=== PATIENT | female | born 1975 | race Caucasian/White ===

== ENCOUNTER → 2018-05-29 | Outpatient (REF) | payer OTHER ==
[2018-05-29 22:05] LABS: CHLAMYDIA DNA AMPLIFICATION NEGATIVE (NEGATIVE); GC DNA AMPLIFICATION NEGATIVE (NEGATIVE)
[2018-05-31 14:10] LABS: HPV HYBRID CAPTURE II Negative (Negative)
== END ==
LOC: M SFHCWAGY 15:38
DX: Z12.4 Encounter for screening for malignant neoplasm of cervix (principal); Z11.3 Encounter for screening for infections with a predominantly sexual mode of transmission; A59.09 Other urogenital trichomoniasis
CPT/HCPCS: 87591

== ENCOUNTER 2022-09-17 15:53 | Emergency (ER) | payer OTHER ==
[~2022-09-17] VITALS: Ht 172.7 cm; Wt 90.8 kg
[2022-09-17] MEDS ORDERED: ROBILIQ13 PO (16:23)
[2022-09-17] MEDS ORDERED: ACETAMINOPHEN 325 MG TAB PO ONE (18:10)
[2022-09-17 18:50] LABS: BASO # 0.1 10^3/uL (0.0-0.2); BASO % 0.4 % (0.0-1.0); HEMATOCRIT 43.7 % (36.0-47.0); HEMOGLOBIN 14.8 g/dl (12.0-15.5); LYMPH % 9.8 % (24.0-44.0); MEAN CORPUSCULAR HEMOGLOBIN 32.7 pg (27.0-33.0); MEAN CORPUSCULAR HGB CONC 33.9 g/dl (32.0-36.5); MEAN CORPUSCULAR VOLUME 96.7 fl (80.0-96.0); MONO # 1.2 10^3/uL (0.0-0.8); NEUTROPHILS # 16.8 10^3/uL (1.5-8.5); PLATELET COUNT, AUTOMATED 346 10^3/uL (150-450); RED BLOOD COUNT 4.52 10^6/uL (4.00-5.40); WHITE BLOOD COUNT 20.2 10^3/uL (4.0-10.0)
[2022-09-17 19:00] LABS: INR 1.1; PROTHROMBIN TIME 14.5 SECONDS (12.5-14.5)
[2022-09-17 19:01] LABS: PARTIAL THROMBOPLASTIN TIME 31.5 SECONDS (24.8-34.2)
[2022-09-17 19:03] LABS: D-DIMER QUANT 1868.69 ng/ml (<500)
[2022-09-17] MEDS ORDERED: LevoFLOXacin 750 MG TABLET PO ONE (19:10)
[2022-09-17] MEDS ORDERED: NS 1,000 ML IV ONE (19:15)
[2022-09-17] MEDS ORDERED: ISOVUE-370 76% 100ML VIAL As Ordered ONE (19:15)
[2022-09-17 19:42] LABS: CK-MB VALUE MASS < 1.0 NG/ML (<3.6); CPK CREATINE PHOSPHOKINASE 82 U/L (34-145); MB/CK RELATIVE INDEX 1.21 (< OR =4)
[2022-09-17] MEDS ORDERED: LEVO750T14 PO (20:30)
[2022-09-17 21:03] VITALS: BP 127/60
== END 2022-09-17 21:00 | disposition home or self-care (01) ==
LOC: M ED 15:53
DX: J18.1 Lobar pneumonia, unspecified organism (principal); F17.200 Nicotine dependence, unspecified, uncomplicated; Z83.2 Family history of diseases of the blood and blood-forming organs and certain disorders involving the immune mechanism; Z88.0 Allergy status to penicillin

== ENCOUNTER → 2024-01-04 | Outpatient (REF) | payer OTHER ==
[~2024-01-04] MED LIST: LEVO750T14 PO; ROBILIQ13 PO
== END ==
LOC: M LAB REF 13:15
PROVIDERS: ATTEND Physician Assistant Medical
DX: B34.9 Viral infection, unspecified (principal)

== ENCOUNTER 2024-05-11 23:50 | Emergency (ER) | payer OTHER ==
[~2024-05-11] VITALS: Ht 170.2 cm; Wt 81.8 kg
[2024-05-11 23:56] VITALS: BP 165/81; TEMP 97.6; O2SAT 95
== END 2024-05-12 00:31 | disposition left against medical advice (07) ==
LOC: M ED 23:50
DX: Z53.21 Procedure and treatment not carried out due to patient leaving prior to being seen by health care provider (principal)

== ENCOUNTER → 2024-11-25 | Outpatient (REF) | payer OTHER ==
[~2024-11-25] MED LIST changes: -LEVO750T14 PO; +LEVO75TAB PO
== END ==
LOC: M LAB REF 16:17
PROVIDERS: ATTEND Physician Assistant Medical
DX: R52 Pain, unspecified (principal); Z11.52 Encounter for screening for COVID-19

== ENCOUNTER → 2025-05-28 | Outpatient (CLI) | payer OTHER ==
[~2025-05-28] MED LIST changes: +IBUP200C25 PO; +NAPR-837 PO
== END ==
LOC: M RAD 16:31
PROVIDERS: ATTEND Student in an Organized Health Care Education/Training Program
DX: M54.31 Sciatica, right side (principal); M54.32 Sciatica, left side

== ENCOUNTER 2025-06-17 14:55 | Outpatient (RCR) | payer OTHER | END 2025-06-27 | LOC: M PT 14:55 | PROVIDERS: ATTEND Student in an Organized Health Care Education/Training Program | DX: M54.31 Sciatica, right side (principal); M54.32 Sciatica, left side ==

== ENCOUNTER → 2025-06-23 | Outpatient (REF) | payer OTHER ==
[2025-06-23 14:40] LABS: ESTIMATED AVERAGE GLUCOSE 100.0 MG/DL (60-110)
[2025-06-23 15:14] LABS: TOTAL 25(OH) VITAMIN D 24.7 NG/ML (20.0-100.0)
[2025-06-23 15:38] LABS: ALT/SGPT 30 U/L (7.0-40); AST/SGOT 31 U/L (<34); CALCIUM LEVEL 9.1 MG/DL (8.5-10.1); CARBON DIOXIDE LEVEL 26 MMOL/L (20-31); CHLORIDE LEVEL 103 MMOL/L (98-107); CHOLESTEROL LEVEL 217 MG/DL (<200); CHOLESTEROL RISK RATIO 3.98 (<5); CREATININE FOR GFR 0.54 MG/DL (0.55-1.30); GLOMERULAR FILTRATION RATE > 90.0 (>51); LDL CHOLESTEROL 117.8 MG/DL (<100); NON-HDL-C 162.6 MG/DL; POTASSIUM SERUM 3.5 MMOL/L (3.5-5.1); SODIUM LEVEL 141 MMOL/L (136-145); TRIGLYCERIDES LEVEL 224 MG/DL (<150)
== END ==
LOC: M LAB REF 12:09
PROVIDERS: ATTEND Student in an Organized Health Care Education/Training Program
DX: E55.9 Vitamin D deficiency, unspecified (principal); Z68.30 Body mass index [BMI] 30.0-30.9, adult

== ENCOUNTER 2025-07-08 15:45 | Outpatient (RCR) | payer OTHER | END 2025-07-27 | LOC: M PT 15:45 | PROVIDERS: ATTEND Student in an Organized Health Care Education/Training Program | DX: M54.31 Sciatica, right side (principal); M54.32 Sciatica, left side ==

== ENCOUNTER → 2025-08-06 | Outpatient (CLI) | payer OTHER | LOC: M PLAIMG 12:33 | PROVIDERS: ATTEND Physical Medicine & Rehabilitation | DX: M51.362 Other intervertebral disc degeneration, lumbar region with discogenic back pain and lower extremity pain (principal); M51.26 Other intervertebral disc displacement, lumbar region; M47.816 Spondylosis without myelopathy or radiculopathy, lumbar region; M47.817 Spondylosis without myelopathy or radiculopathy, lumbosacral region ==

== ENCOUNTER → 2025-10-20 | Outpatient (CLI) | payer OTHER ==
[~2025-10-20] MED LIST changes: +PROHANCE 279.3MG/ML 15ML VIAL As Ordered ONE; +PROHANCE 279.3MG/ML 5ML VIAL As Ordered ONE
== END ==
LOC: M RAD 07:12
PROVIDERS: ATTEND Physical Medicine & Rehabilitation
DX: M47.894 Other spondylosis, thoracic region (principal); M51.34 Other intervertebral disc degeneration, thoracic region; M48.04 Spinal stenosis, thoracic region; M47.896 Other spondylosis, lumbar region; M48.062 Spinal stenosis, lumbar region with neurogenic claudication; M51.26 Other intervertebral disc displacement, lumbar region; M51.360 Other intervertebral disc degeneration, lumbar region with discogenic back pain only
CPT/HCPCS: 36415; 72157; 72158; 85652; 86140; A9579